=== PATIENT | male | born 1990 | race Caucasian/White ===

== ENCOUNTER 2017-09-19 22:03 | Emergency (ER) | payer SELFPAY ==
[~2017-09-19] VITALS: Ht 198.1 cm; Wt 152.3 kg
[2017-09-19 22:13] VITALS: TEMP 36.8; Ht 198.1 cm; Wt 152.3 kg
[2017-09-19] MEDS ORDERED: KETOROLAC TROMETHAMINE 60 MG/2 ML VIAL IM STA (22:32)
[2017-09-19] MEDS ORDERED: ACET-1256 PO (22:52)
[2017-09-19] MEDS ORDERED: NAPR1TAB9 PO (22:53)
--- NOTE | 2017-09-19 22:56 | DIAGNOSTIC IMAGING REPORT ---
R SHOULDER MIN 2 VIEWS ROUTINE CLINICAL HISTORY: Right shoulder pain following injury. Evaluate for fracture. COMPARISON: None FINDINGS: Alignment of the right shoulder is anatomic. No acute fracture is identified. IMPRESSION: No acute fracture or dislocation of the right shoulder. Electronically signed by: Anatoliy Milton M.D. 09/19/2017 10:55 PM Dictated Date/Time: 09/19/2017 10:54 PM
[2017-09-19 23:18] VITALS: BP 162/92; PULSE 92; O2SAT 96
--- NOTE | 2017-09-20 00:03 | EMERGENCY ROOM VISIT NOTE ---
History Report prepared by Tate: Nathaly Carter Under the Supervision of: Dr. Avery Luciano M.D. First contact with patient: 22:24 Chief Complaint: ARM PAIN Stated Complaint: PAIN RIGHT ARM POSSIBLY PULLED MUSCLE History of Present Illness The patient is a 26 year old male who presents to the Emergency Room with complaints of right arm pain beginning around 2 weeks ago but worsened yesterday. He describes the pain as sharp and stabbing. He denies neck pain and hand numbness or weakness. The patient states the pain cause caused due to lifting heavy boxes at work. 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 He denies any chest pain or shortness of breath. Source of History: patient Onset: two weeks ago Position: arm (right) Quality: sharp, stabbing Timing: worsening Modifying Factors (Worsening): movement Associated Symptoms: No neck pain, No chest pain, No SOB, No weakness, No numbness Review of Systems See HPI for pertinent positives & negatives. A total of 10 systems reviewed and were otherwise negative. Past Medical & Surgical Medical Problems: (1) No significant past medical history Family History Patient reports no known family medical history. 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 Respiratory: Clear to auscultation bilaterally. Breath sounds are equal bilaterally. Cardiovascular: Regular rate and rhythm. No rubs or gallops. Musculoskeletal: No swelling to the right upper extremity. Normal distal pulses. No midline tenderness to the cervical spine. Tenderness with abduction of the right shoulder. No pain or deformity of the musculature and no bony tenderness to the arm. No redness or increased warmth. Integumentary: No cyanosis. Neurological: The patient is awake and alert. No focal deficits. Psychiatric: Normal affect. Medical Decision & Procedures ER Provider Diagnostic Interpretation: Radiology results as stated below per my review and the radiologist's interpretation: R SHOULDER MIN 2 VIEWS ROUTINE CLINICAL HISTORY: Right shoulder pain following injury. Evaluate for fracture. COMPARISON: None FINDINGS: Alignment of the right shoulder is anatomic. No acute fracture is identified. IMPRESSION: No acute fracture or dislocation of the right shoulder. Electronically signed by: Anatoliy Milton M.D. 09/19/2017 10:55 PM Dictated Date/Time: 09/19/2017 10:54 PM Medications Administered Medications (Trade) Dose Ordered Sig/Nuzhat Route Start Time Stop Time Status Last Admin Dose Admin Ketorolac Tromethamine (Toradol Inj) 30 mg NOW STAT IM 09/19/17 22:32 09/19/17 22:33 DC 09/19/17 22:41 30 MG ED Course 2229: The patient was evaluated in room B8. A complete history and physical exam was performed. 2304: I discussed his test results and recommended an orthopedic follow up. Upon reevaluation, the patient appeared to have improvement of his symptoms. I discussed tonight's findings with him. He verbalized agreement of the treatment plan. He was discharged home. Medical Decision This is a 26-year-old male presents with right arm pain. Differential diagnosis includes rotator cuff injury, bursitis, tendinitis. I did perform a limited focused review of portions of the patient's old chart on the electronic medical record. The patient has had no recent visits to this hospital. I did evaluate the patient as noted above. The patient has significant pain with abduction of the right shoulder. He otherwise has fairly good range of motion of the shoulder. He has no neurovascular compromise. I did order and personally review the patient's right shoulder x-rays as described above. There is no evidence of acute fracture or dislocation. I did treat patient with Toradol IM. I did discuss the test results with the patient. He was given a shoulder sling and advised to use it for comfort only. He was referred to Dr. Gomez of orthopedics for further care and evaluation. He was told to avoid any lifting with that arm. Medication Reconcilliation Current Medication List: was personally reviewed by me Blood Pressure Screening Patient's blood pressure: Elevated blood pressure Blood pressure disposition: Elevated BP felt to be situational Impression Primary Impression: Right shoulder pain Scribe Attestation The scribe's documentation has been prepared under my direct and personally reviewed by me in its entirety. I confirm that the note above accurately reflects all work, treatment, procedures, and medical decision making performed by me. Departure Information Dispostion Home / Self-Care Referrals No Doctor, Assigned (PCP) Bandar Gomez M.D. Forms HOME CARE DOCUMENTATION FORM, IMPORTANT VISIT INFORMATION, Work Instructions Patient Instructions My [facility] Additional Instructions You have been examined and treated today on an emergency basis only. This is not a substitute for, or an effort to provide, complete comprehensive medical care. It is impossible to recognize and treat all injuries or illnesses in a single emergency department visit. It is therefore important that you follow up closely with Dr. Gomez of orthopedics. Call as soon as possible for an appointment. Return for worsening symptoms or if you develop chest pain, shortness of breath, swelling to your arm, numbness or weakness to your arm or any other concerning symptoms. Problem Qualifiers Primary Impression: Right shoulder pain Chronicity: acute Qualified Codes: M25.511 - Pain in right shoulder
== END 2017-09-19 23:19 | disposition home or self-care (01) ==
LOC: C.EDB 22:05
DX: S46.901A Unspecified injury of unspecified muscle, fascia and tendon at shoulder and upper arm level, right arm, initial encounter (principal); M25.511 Pain in right shoulder; M79.601 Pain in right arm; X50.0XXA Overexertion from strenuous movement or load, initial encounter; Y99.0 Civilian activity done for income or pay